=== PATIENT | male | born 1965 | race Two or more races ===

== ENCOUNTER 2023-06-15 12:14 | Inpatient (IN) | payer MEDICAID ==
[~2023-06-15] VITALS: Ht 170.2 cm; Wt 79.5 kg
[2023-06-15 13:21] LABS: Basophils # (auto) 0.1 10 ^3/uL (0-0.2); Eosinophils # (auto) 0 10 ^3/uL (0-0.8); Eosinophils % (auto) 0.5 % (0.0-7.0); Hematocrit 37.5 % (41.0-53.0); Hemoglobin 12.5 g/dL (13.5-17.5); Lymphocytes # (auto) 1.9 10 ^3/uL (0.4-5.4); Lymphocytes % (auto) 24.4 % (10.0-50.0); Mean Corpuscular Hemoglobin 26.7 pg (28.0-32.0); Mean Corpuscular Hgb Conc. 33.4 g/dL (32.0-36.0); Mean Corpuscular Volume 79.9 fL (80.0-100.0); Monocytes # (auto) 0.6 10 ^3/uL (0-1.3); Monocytes % (auto) 8.1 % (0.0-12.0); Red Cell Distribution Width 13.9 % (11.8-14.3); White Blood Cell 7.6 10^3/uL (4.4-10.8)
[2023-06-15 13:32] LABS: Urine Epithelial Cast None Seen /hpf (<5)
[2023-06-15 13:42] LABS: Urine Bacteria NONE SEEN /hpf (None Seen); Urine Blood Negative /uL (Negative); Urine Clarity Clear (Clear); Urine Color Colorless (Yellow); Urine Protein, UAD 2+ (Negative); Urine Specific Gravity 1.007 (1.001-1.035); Urine Urobilinogen Normal (Negative); Urine WBC 1 /hpf (0 - 3); Urine pH 6.5 (5.0-8.0)
[2023-06-15 13:59] LABS: Alanine Aminotransferase 54 U/L (7-40); Albumin 3.9 g/dL (3.2-4.8); Alkaline Phosphatase 173 U/L (46-116); Anion Gap 7 (5-15); Aspartate Aminotransferase 41 U/L (13-40); BUN/Creatinine Ratio 19.2 (10.0-20.0); Bilirubin, Total 0.4 mg/dL (0.2-1.0); Blood Urea Nitrogen 20 mg/dL (9-23); Calcium 8.6 mg/dL (8.7-10.4); Carbon Dioxide 26 mmol/L (20-30); Chloride 106 mmol/L (98-107); Glucose 107 mg/dL (74-106); Lipase 44 U/L (12-53); Potassium 3.9 mmol/L (3.5-5.1); Sodium 139 mmol/L (136-145); Total Protein 6.8 g/dL (5.7-8.2)
[2023-06-15] MEDS ORDERED: NITROGLYCERIN 0.4 MG SL TAB SL PRN (15:45)
[2023-06-15] MEDS ORDERED: DEXTROSE (50%) 50ML SYRG IV PRN (15:45)
[2023-06-15] MEDS ORDERED: MORPHINE SULFATE INJ 2 MG/ml SYRG IV PRN (15:45)
[2023-06-15] MEDS ORDERED: HYDROmorphone HCL 2 MG/ML VL/or syr IV PRN (16:15)
[2023-06-15] MEDS ORDERED: ONDANSETRON HCL 4 MG/2 ML VIAL IV PRN (16:15)
[2023-06-15] MEDS: InsuLIN REG 1unit/0.01ml Soln (100units/ml) SC SCH ×2 (17:00→22:00)
[2023-06-15] MEDS: ACCU-CHEK COMFORT CURVE STRIP VI SCH ×2 (17:11→22:00)
[2023-06-15] MEDS: ENOXAPARIN SOD 40 MG/0.4 ML SYRINGE SC SCH (17:13)
[2023-06-15] MEDS ORDERED: GADOTERATE MEG 10 MMOL/20ml INJ (0.5MMOL/ml) IV ONE (17:40)
[2023-06-15 23:07] VITALS: BP 120/80; PULSE 88; RESP 16; TEMP 98; O2SAT 95
[2023-06-16 05:00] VITALS: BP 120/77; PULSE 70; RESP 21; TEMP 98; O2SAT 95
[2023-06-16 05:47] LABS: Basophils # (auto) 0 10 ^3/uL (0-0.2); Eosinophils # (auto) 0.1 10 ^3/uL (0-0.8); Eosinophils % (auto) 1.7 % (0.0-7.0); Neutrophils % (auto) 66.8 % (37.0-80.0)
[2023-06-16 05:51] LABS: Basophils % (auto) 0.5 % (0.0-2.0); Hematocrit 36.4 % (41.0-53.0); Hemoglobin 12.1 g/dL (13.5-17.5); Lymphocytes # (auto) 1.7 10 ^3/uL (0.4-5.4); Lymphocytes % (auto) 21.5 % (10.0-50.0); Mean Corpuscular Hemoglobin 26.5 pg (28.0-32.0); Mean Corpuscular Hgb Conc. 33.3 g/dL (32.0-36.0); Mean Corpuscular Volume 79.5 fL (80.0-100.0); Monocytes # (auto) 0.8 10 ^3/uL (0-1.3); Monocytes % (auto) 9.5 % (0.0-12.0); Neutrophils # (auto) 5.3 10 ^3/uL (1.6-8.6); Red Blood Cells 4.58 10^6/uL (4.5-5.90); Red Cell Distribution Width 13.6 % (11.8-14.3)
[2023-06-16 05:59] LABS: Alanine Aminotransferase 39 U/L (7-40); Albumin 3.6 g/dL (3.2-4.8); Alkaline Phosphatase 150 U/L (46-116); Anion Gap 6 (5-15); Aspartate Aminotransferase 27 U/L (13-40); BUN/Creatinine Ratio 12.4 (10.0-20.0); Bilirubin, Total 0.7 mg/dL (0.2-1.0); Blood Urea Nitrogen 11 mg/dL (9-23); Calcium 8.6 mg/dL (8.7-10.4); Carbon Dioxide 27 mmol/L (20-30); Chloride 106 mmol/L (98-107); Glucose 96 mg/dL (74-106); Potassium 3.9 mmol/L (3.5-5.1); Sodium 139 mmol/L (136-145); Total Protein 6.6 g/dL (5.7-8.2)
[2023-06-16 08:00] VITALS: PULSE 75
[2023-06-16 09:00] VITALS: BP 124/76; PULSE 78; RESP 19; TEMP 98; O2SAT 92
[2023-06-16] MEDS ORDERED: PANTOPRAZOLE 40 MG/10 ML VIAL INJ IV SCH (10:00)
[2023-06-16] MEDS: ENOXAPARIN SOD 40 MG/0.4 ML SYRINGE SC SCH (10:27)
[2023-06-16] MEDS ORDERED: GADOTERATE MEG 10 MMOL/20ml INJ (0.5MMOL/ml) IV ONE (11:28)
[2023-06-16] MEDS: InsuLIN REG 1unit/0.01ml Soln (100units/ml) SC SCH ×2 (11:30→17:30)
[2023-06-16] MEDS: ACCU-CHEK COMFORT CURVE STRIP VI SCH ×2 (11:30→17:30)
[2023-06-16 13:00] VITALS: BP 127/80; PULSE 84; RESP 19; TEMP 97.8; O2SAT 92
[2023-06-16] MEDS ORDERED: HYDR-4902 PO (15:23)
[2023-06-16 17:00] VITALS: BP 119/76; PULSE 78; RESP 19; TEMP 98.6; O2SAT 96
[2023-06-17 08:34] LABS: Hepatitis B Surface Antigen Negative (Negative)
[2023-06-17 08:55] LABS: Hepatitis C Antibody Negative (Negative)
== END 2023-06-16 18:00 | disposition home or self-care (01) | DRG 468 ==
LOC: EDBD 12:14 → ER 12:14 → TELE 15:35 → TELE-EAST 23:24
PROVIDERS: ADMIT Nurse Practitioner; ATTEND Nurse Practitioner
DX: N28.89 Other specified disorders of kidney and ureter (principal); J90 Pleural effusion, not elsewhere classified; E11.9 Type 2 diabetes mellitus without complications; E78.5 Hyperlipidemia, unspecified; I10 Essential (primary) hypertension; D64.9 Anemia, unspecified; I25.2 Old myocardial infarction; Z83.3 Family history of diabetes mellitus
CPT/HCPCS: 36415; 74176; 74183; 76700; 80053; 81001; 82962; 83690; 85025; 86803; 87340; 93005; C9113; G0378

== ENCOUNTER 2023-08-05 07:57 | Inpatient (IN) | payer MEDICAID ==
[~2023-08-05] VITALS: Ht 172.7 cm; Wt 82.1 kg
[~2023-08-05 07:57] MED LIST: HYDR-4902 PO
[2023-08-05 08:41] VITALS: PULSE 84; RESP 28; O2SAT 95
[2023-08-05 08:46] LABS: Basophils # (auto) 0 10 ^3/uL (0-0.2); Basophils % (auto) 0.4 % (0.0-2.0); Eosinophils # (auto) 0 10 ^3/uL (0-0.8); Eosinophils % (auto) 0.3 % (0.0-7.0); Hematocrit 42.8 % (41.0-53.0); Hemoglobin 13.7 g/dL (13.5-17.5); Lymphocytes # (auto) 1.5 10 ^3/uL (0.4-5.4); Lymphocytes % (auto) 18.9 % (10.0-50.0); Mean Corpuscular Hgb Conc. 32.1 g/dL (32.0-36.0); Mean Corpuscular Volume 81.2 fL (80.0-100.0); Monocytes # (auto) 0.9 10 ^3/uL (0-1.3); Neutrophils # (auto) 5.5 10 ^3/uL (1.6-8.6); Neutrophils % (auto) 69.4 % (37.0-80.0); Nucleated Red Blood Cells % 0.1 %; Red Blood Cells 5.26 10^6/uL (4.5-5.90); Red Cell Distribution Width 15.8 % (11.8-14.3)
[2023-08-05 08:59] LABS: INR 1.48 (0.9-1.15); Prothrombin Time 15.1 sec (9.3-11.8)
[2023-08-05 09:11] LABS: Alanine Aminotransferase 165 U/L (7-40); Albumin 3.8 g/dL (3.2-4.8); Alkaline Phosphatase 306 U/L (46-116); Anion Gap 8 (5-15); Aspartate Aminotransferase 200 U/L (13-40); BUN/Creatinine Ratio 25.5 (10.0-20.0); Bilirubin, Direct 0.8 mg/dL (<0.3); Blood Urea Nitrogen 35 mg/dL (9-23); Calcium 8.9 mg/dL (8.5-10.1); Carbon Dioxide 24 mmol/L (20-30); Chloride 101 mmol/L (98-107); Glucose 161 mg/dL (74-106); Potassium 4.7 mmol/L (3.5-5.1); Sodium 133 mmol/L (136-145)
[2023-08-05 09:12] LABS: Bilirubin, Total 1.7 mg/dL (0.2-1.0); Total Protein 6.5 g/dL (5.7-8.2)
[2023-08-05 09:13] LABS: Urine Bacteria NONE SEEN /hpf (None Seen); Urine Blood Negative /uL (Negative); Urine Clarity Clear (Clear); Urine Color Yellow (Yellow); Urine Hyaline Cast FEW /lpf (0 - 2); Urine Protein, UAD 2+ (Negative); Urine Specific Gravity 1.022 (1.001-1.035); Urine Urobilinogen Normal (Negative); Urine WBC 5 /hpf (0 - 3); Urine pH 5.5 (5.0-8.0)
[2023-08-05] MEDS: FUROSEMIDE 40 MG/4 ML VIAL IV ONE (09:16)
[2023-08-05] MEDS: ONDANSETRON HCL 4 MG/2 ML VIAL IV ONE (09:16)
[2023-08-05] MEDS: DICYCLOMINE HCL (10MG/ML) 2 ML AMPULE IM ONE (09:16)
[2023-08-05 11:46] LABS: Lipase 66 U/L (12-53)
[2023-08-05] MEDS ORDERED: MORPHINE SULFATE INJ 2 MG/ml SYRG IV PRN ×2 (12:00)
[2023-08-05] MEDS ORDERED: HYDROcodone-ACET 5/325MG TAB PO PRN (12:00)
[2023-08-05] MEDS ORDERED: ACETAMINOPHEN 325 MG TAB PO PRN (12:00)
[2023-08-05] MEDS ORDERED: NITROGLYCERIN 0.4 MG SL TAB SL PRN (12:00)
[2023-08-05] MEDS: ALBUMIN 25% 100 ML IV SCH (12:48)
[2023-08-05 13:35] LABS: Erythrocyte Sedimentation Rate 10 mm/hr (0-20)
[2023-08-05] MEDS: metroNIDAZOLE 500MG/100ML 100 ML IV SCH (13:56)
[2023-08-05 19:30] VITALS: PULSE 74; RESP 28; O2SAT 92
[2023-08-06] VITALS (8 sets, daily range): BP systolic 104–132; BP diastolic 69–82; PULSE 71–100; RESP 12–18; TEMP 97.3–98.2; O2SAT 90–99
[2023-08-06 06:58] LABS: Basophils # (auto) 0 10 ^3/uL (0-0.2); Basophils % (auto) 0.6 % (0.0-2.0); Eosinophils # (auto) 0.2 10 ^3/uL (0-0.8); Hematocrit 36.7 % (41.0-53.0); Hemoglobin 11.9 g/dL (13.5-17.5); Lymphocytes # (auto) 1.8 10 ^3/uL (0.4-5.4); Mean Corpuscular Hemoglobin 26.2 pg (28.0-32.0); Mean Corpuscular Hgb Conc. 32.5 g/dL (32.0-36.0); Mean Corpuscular Volume 80.5 fL (80.0-100.0); Monocytes # (auto) 0.8 10 ^3/uL (0-1.3); Monocytes % (auto) 9.5 % (0.0-12.0); Neutrophils # (auto) 5.3 10 ^3/uL (1.6-8.6); Neutrophils % (auto) 65.9 % (37.0-80.0); Nucleated Red Blood Cells % 0.1 %; Red Blood Cells 4.56 10^6/uL (4.5-5.90); Red Cell Distribution Width 15.5 % (11.8-14.3)
[2023-08-06 07:21] LABS: Alanine Aminotransferase 167 U/L (7-40); Albumin 3.8 g/dL (3.2-4.8); Alkaline Phosphatase 240 U/L (46-116); Anion Gap 6 (5-15); Aspartate Aminotransferase 181 U/L (13-40); BUN/Creatinine Ratio 22.7 (10.0-20.0); Bilirubin, Total 1.2 mg/dL (0.2-1.0); Blood Urea Nitrogen 27 mg/dL (9-23); Calcium 8.9 mg/dL (8.5-10.1); Carbon Dioxide 28 mmol/L (20-30); Chloride 102 mmol/L (98-107); Glucose 102 mg/dL (74-106); Potassium 4.1 mmol/L (3.5-5.1); Sodium 136 mmol/L (136-145); Total Protein 6.2 g/dL (5.7-8.2)
[2023-08-06] MEDS: FUROSEMIDE 40 MG/4 ML VIAL IV SCH (09:39)
[2023-08-06] MEDS: ENOXAPARIN SOD 40 MG/0.4 ML SYRINGE SC SCH (09:39)
[2023-08-07] VITALS (8 sets, daily range): BP systolic 111–132; BP diastolic 68–83; PULSE 8–93; RESP 12–20; TEMP 97.8–98.4; O2SAT 92–96
[2023-08-07] MEDS: DOXYCYCLINE 100MG/250ML 250 ML IV SCH (08:31)
[2023-08-07] MEDS: DOCUSATE SOD 100 MG CAP PO PRN (18:54)
[2023-08-07 20:59] LABS: Rapid Influenza A Negative (Negative); Rapid Influenza B Negative (Negative)
[2023-08-07 21:08] LABS: COVID19 ANTIGEN SOFIA FIA NEGATIVE (NEGATIVE)
[2023-08-08] VITALS (7 sets, daily range): BP systolic 112–128; BP diastolic 71–82; PULSE 80–100; RESP 18–21; TEMP 97.7–98.3; O2SAT 94–97
[2023-08-08] MEDS: ONDANSETRON HCL 4 MG/2 ML VIAL IV PRN (08:54)
[2023-08-08] MEDS: SACUBITRIL-VALSARTAN 24mg/26mg TAB PO SCH (10:23)
[2023-08-08] MEDS: EMPAGLIFLOZIN 10 MG TAB PO SCH (10:23)
[2023-08-08] MEDS: CARVEDILOL 3.125 MG TAB PO SCH (10:23)
[2023-08-08] MEDS: PANTOPRAZOLE 40 MG TAB PO ONE (13:21)
[2023-08-08 20:21] LABS: Basophils # (auto) 0 10 ^3/uL (0-0.2); Basophils % (auto) 0.6 % (0.0-2.0); Eosinophils # (auto) 0.1 10 ^3/uL (0-0.8); Eosinophils % (auto) 0.8 % (0.0-7.0); Hematocrit 36.7 % (41.0-53.0); Hemoglobin 11.9 g/dL (13.5-17.5); Lymphocytes # (auto) 1.1 10 ^3/uL (0.4-5.4); Lymphocytes % (auto) 12.7 % (10.0-50.0); Mean Corpuscular Hgb Conc. 32.3 g/dL (32.0-36.0); Mean Corpuscular Volume 80.6 fL (80.0-100.0); Monocytes # (auto) 0.8 10 ^3/uL (0-1.3); Neutrophils # (auto) 6.4 10 ^3/uL (1.6-8.6); Neutrophils % (auto) 75.9 % (37.0-80.0); Red Blood Cells 4.56 10^6/uL (4.5-5.90); Red Cell Distribution Width 15.8 % (11.8-14.3); White Blood Cell 8.4 10^3/uL (4.4-10.8)
[2023-08-08 20:50] LABS: Alanine Aminotransferase 121 U/L (7-40); Alkaline Phosphatase 240 U/L (46-116); Anion Gap 9 (5-15); Aspartate Aminotransferase 90 U/L (13-40); BUN/Creatinine Ratio 14.3 (10.0-20.0); Bilirubin, Total 2.2 mg/dL (0.2-1.0); Blood Urea Nitrogen 16 mg/dL (9-23); Calcium 9.7 mg/dL (8.7-10.4); Carbon Dioxide 28 mmol/L (20-30); Chloride 99 mmol/L (98-107); Glucose 133 mg/dL (74-106); Potassium 3.7 mmol/L (3.5-5.1); Sodium 136 mmol/L (136-145); Total Protein 7.4 g/dL (5.7-8.2)
[2023-08-08] MEDS: IOHEXOL 350 MG/ML 100ML IJ ONE (20:54)
[2023-08-08] MEDS: TEMAZEPAM 15 MG CAP PO PRN (21:19)
[2023-08-09] VITALS (12 sets, daily range): BP systolic 100–114; BP diastolic 63–76; PULSE 75–100; RESP 18–24; TEMP 97.6–98.5; O2SAT 90–96
[2023-08-09 05:52] LABS: Alanine Aminotransferase 97 U/L (7-40); Alkaline Phosphatase 207 U/L (46-116); Anion Gap 7 (5-15); BUN/Creatinine Ratio 12.4 (10.0-20.0); Blood Urea Nitrogen 14 mg/dL (9-23); Calcium 9.5 mg/dL (8.5-10.1); Carbon Dioxide 29 mmol/L (20-30); Chloride 100 mmol/L (98-107); Glucose 90 mg/dL (74-106); Potassium 3.7 mmol/L (3.5-5.1); Sodium 136 mmol/L (136-145)
[2023-08-09 05:53] LABS: Albumin 4.5 g/dL (3.2-4.8); Aspartate Aminotransferase 64 U/L (13-40); Bilirubin, Total 2.4 mg/dL (0.2-1.0); Total Protein 6.4 g/dL (5.7-8.2)
[2023-08-09 07:13] LABS: Basophils # (auto) 0 10 ^3/uL (0-0.2); Basophils % (auto) 0.4 % (0.0-2.0); Eosinophils # (auto) 0.1 10 ^3/uL (0-0.8); Hematocrit 36.7 % (41.0-53.0); Hemoglobin 11.8 g/dL (13.5-17.5); Lymphocytes # (auto) 1.2 10 ^3/uL (0.4-5.4); Lymphocytes % (auto) 13.8 % (10.0-50.0); Mean Corpuscular Hemoglobin 25.9 pg (28.0-32.0); Mean Corpuscular Hgb Conc. 32.2 g/dL (32.0-36.0); Mean Corpuscular Volume 80.3 fL (80.0-100.0); Monocytes # (auto) 0.9 10 ^3/uL (0-1.3); Monocytes % (auto) 10.2 % (0.0-12.0); Neutrophils # (auto) 6.7 10 ^3/uL (1.6-8.6); Neutrophils % (auto) 74.6 % (37.0-80.0); Red Blood Cells 4.57 10^6/uL (4.5-5.90); Red Cell Distribution Width 15.7 % (11.8-14.3)
[2023-08-09] MEDS: LIDOCAINE 2%HCL (LOCAL ANESTH.) INJ 10ml MDV ONE (07:51)
[2023-08-09] MEDS: HEPARIN IN NS 1000Units/500mL 1,500 ML ONE (07:51)
[2023-08-09] MEDS: IODIXANOL 320MG/ML 100ML BTL IV ONE ×3 (07:52→16:05)
[2023-08-09] MEDS: IOHEXOL 350 MG/ML 100ML IJ ONE (07:52)
[2023-08-09 08:47] LABS: Hepatitis B Surface Antigen Negative (Negative)
[2023-08-09 09:08] LABS: Hepatitis C Antibody Negative (Negative)
[2023-08-09] MEDS: PANTOPRAZOLE 40 MG TAB PO SCH (10:00)
[2023-08-09] MEDS: LIDOCAINE 2%HCL (LOCAL ANESTH.) INJ 20ML MDV ONE (15:31)
[2023-08-09] MEDS: SODIUM CHL 0.9% 0 ML ONE (16:01)
[2023-08-09] MEDS: fentaNYL CITRATE 100 MCG/2 ML VL ONE (16:01)
[2023-08-09] MEDS: VERAPAMIL 2.5MG/ML INJ 2ML VIAL IV ONE (16:01)
[2023-08-09] MEDS: ANGIOMAX 250 MG VIAL IV ONE (16:01)
[2023-08-09] MEDS: HEPARIN SODIUM (PORCINE) 5000 UNITS/ML 1ML VIAL ONE (16:01)
[2023-08-09] MEDS: MIDAZOLAM HCL 2MG/2ML 2ml VIAL (1mg/ml) ONE (16:01)
[2023-08-10] VITALS (9 sets, daily range): BP systolic 103–135; BP diastolic 64–79; PULSE 78–100; RESP 16–22; TEMP 97.4–98.4; O2SAT 92–95
[2023-08-11] VITALS (8 sets, daily range): BP systolic 103–160; BP diastolic 67–73; PULSE 76–82; RESP 16–18; TEMP 97.9–98.2; O2SAT 94–96
[2023-08-11 09:14] LABS: Basophils # (auto) 0 10 ^3/uL (0-0.2); Basophils % (auto) 0.5 % (0.0-2.0); Eosinophils # (auto) 0.1 10 ^3/uL (0-0.8); Eosinophils % (auto) 1.3 % (0.0-7.0); Hematocrit 35.2 % (41.0-53.0); Hemoglobin 11.5 g/dL (13.5-17.5); Lymphocytes # (auto) 1.4 10 ^3/uL (0.4-5.4); Lymphocytes % (auto) 19.5 % (10.0-50.0); Mean Corpuscular Hemoglobin 26.1 pg (28.0-32.0); Mean Corpuscular Hgb Conc. 32.7 g/dL (32.0-36.0); Monocytes # (auto) 0.8 10 ^3/uL (0-1.3); Monocytes % (auto) 11.1 % (0.0-12.0); Neutrophils # (auto) 4.8 10 ^3/uL (1.6-8.6); Neutrophils % (auto) 67.6 % (37.0-80.0); Red Cell Distribution Width 15.4 % (11.8-14.3); White Blood Cell 7.1 10^3/uL (4.4-10.8)
[2023-08-11 09:24] LABS: Alanine Aminotransferase 48 U/L (7-40); Albumin 4.9 g/dL (3.2-4.8); Alkaline Phosphatase 248 U/L (46-116); Anion Gap 11 (5-15); Aspartate Aminotransferase 28 U/L (13-40); BUN/Creatinine Ratio 21.9 (10.0-20.0); Blood Urea Nitrogen 25 mg/dL (9-23); Carbon Dioxide 25 mmol/L (20-30); Chloride 99 mmol/L (98-107); Glucose 107 mg/dL (74-106); Potassium 3.7 mmol/L (3.5-5.1); Sodium 135 mmol/L (136-145)
[2023-08-11 09:25] LABS: Bilirubin, Total 2.7 mg/dL (0.2-1.0); Total Protein 7.2 g/dL (5.7-8.2)
[2023-08-11] MEDS ORDERED: SACU1TAB PO (14:22)
[2023-08-11] MEDS ORDERED: EMPA1TAB PO (14:22)
[2023-08-11] MEDS ORDERED: CAR3125T PO (14:22)
== END 2023-08-11 19:10 | disposition home or self-care (01) | DRG 192 ==
LOC: ER 07:57 → OVERFLOW 11:54 → WEST WING 23:23 → TELE-WESTW 08-07 15:11
PROVIDERS: ADMIT Nurse Practitioner; ATTEND Nurse Practitioner
PROC: 4A023N7 Measurement of Cardiac Sampling and Pressure, Left Heart, Percutaneous Approach (ICD-10-PCS; principal; 2023-08-09)
PROC: B211YZZ Fluoroscopy of Multiple Coronary Arteries using Other Contrast (ICD-10-PCS; 2023-08-09)
PROC: B215YZZ Fluoroscopy of Left Heart using Other Contrast (ICD-10-PCS; 2023-08-09)
DX: I11.0 Hypertensive heart disease with heart failure (principal); N17.9 Acute kidney failure, unspecified; I42.8 Other cardiomyopathies; I50.23 Acute on chronic systolic (congestive) heart failure; E11.9 Type 2 diabetes mellitus without complications; N28.89 Other specified disorders of kidney and ureter; Z20.822 Contact with and (suspected) exposure to COVID-19; K52.9 Noninfective gastroenteritis and colitis, unspecified; E78.5 Hyperlipidemia, unspecified; Z91.199 Patient's noncompliance with other medical treatment and regimen due to unspecified reason; I25.2 Old myocardial infarction; Z83.3 Family history of diabetes mellitus; Z87.891 Personal history of nicotine dependence; Z82.61 Family history of arthritis
CPT/HCPCS: 36415; 71045; 71275; 74176; 76700; 80053; 81001; 82248; 82378; 82962; 83010; 83690; 83735; 83880; 84484; 85025; 85379; 85384; 85610; 85652; 86803; 86850; 86900; 86901; 87340; 87426; 87804; 93005; 93306; 93458; 96365; 96372; 96375; 99152; 99291; G0378; J2001; J2250; J2405; J3490; P9047; Q9967